=== PATIENT | male | born 1955 | race Caucasian/White ===

== ENCOUNTER 2019-09-12 06:40 | Day surgery (SDC) | payer OTHER ==
[2019-09-11 12:21] VITALS: BMI 29.0
[~2019-09-12 06:40] MED LIST: CHONDROITIN SU A/HYALUR SOD 1 KIT IO ONE; EPINEPHrine/PF 1 MG/1 ML (1:1,000) AMPULE SQ ONE; LIDOCAINE HCL 1% PRESERVATIVE FREE - 30ML VIAL IO ONE; TETRACAINE 0.5% OPHTH SOLN 2 ML BOTTLE TP ONE; TOBRAMYCIN/DEXAMETHASONE OPHTH. OINTMENT 1 TUBE OS ONE
[2019-09-12] MEDS ORDERED: ACETAMINOPHEN 325 MG TABLET (FP) PO PRN ×2 (06:45→10:52)
[2019-09-12] MEDS ORDERED: KETOROLAC TROMETHAMINE 0.5% EYE DROP 1 DROP DROPS ONE (07:37)
[2019-09-12] MEDS ORDERED: PHENYLEPHRINE 2.5% OPHTH SOLN 15 ML BOTTLE ONE (07:37)
[2019-09-12] MEDS ORDERED: TROPICAMIDE 1% OPHTH SOLN 15 ML BOTTLE ONE (07:37)
[2019-09-12] MEDS ORDERED: CIPROFLOXACIN HCL 0.3% OPHTH 2.5ML BOTTLE ONE (07:37)
[2019-09-12] MEDS: TROPICAMIDE 1% OPHTH SOLN 15 ML BOTTLE OP SCH ×3 (07:40→07:50)
[2019-09-12] MEDS: KETOROLAC TROMETHAMINE 0.5% EYE DROP 1 DROP DROPS OP SCH ×3 (07:40→07:50)
[2019-09-12] MEDS: CIPROFLOXACIN HCL 0.3% OPHTH 2.5ML BOTTLE OP SCH ×3 (07:40→07:50)
[2019-09-12] MEDS: PHENYLEPHRINE 2.5% OPHTH SOLN 15 ML BOTTLE OP SCH ×3 (07:40→07:50)
--- NOTE | 2019-09-12 08:38 | HP ---
- Patient Scheduled date of Surgery: 09/12/19 Scheduled Surgical Procedure: Phacoemulsification and cataract extraction with PCIOL Affected Eye: Left Chief Complaint (Indication for surgery): Decreased vision affecting ADLs - Ocular History Other Eye History: Other (SELENA, glaucoma suspect) Eye Medications: vigamox Previous Eye Surgery: s/p Lasik 2001 - Medical History Illnesses: Asthma, Hypertension, Hypercholesterolemia, Other (gerd. OA) Current Medications: Ambulatory Orders Atenolol [Tenormin] 100 mg PO HS 09/11/19 Atorvastatin Ca [Lipitor] 10 mg PO HS 09/11/19 B-Complex with Vitamin C [Super B Complex-Vitamin C] 1 each PO DAILY 09/11/19 Diclofenac Sodium [Voltaren-Xr] 100 mg PO DAILY 09/11/19 Allergies/Adverse Reactions: Allergies Allergy/AdvReac Type Severity Reaction Status Date / Time Penicillins Allergy Verified 09/12/19 07:52 Ocular Examination - Best Corrected Visual Acuity Distance: Right eye: 20/50 Distance: Left eye: 20/50 - External/Slit Lamp Examination Abnormalities: decreased TBUT - Intraocular Pressure Intraocular Pressure - Right eye: 14 Intraocular Pressure-Left eye: 14 - Lens Lens: 1-2+ NS 2-3+ PSC - Vitreous/Retina Vitreous/Retina: C:D 0.5 m/v/p wnl - Special Examination M - Right eye: +0.75 M - Left eye: +1.50 K - Right eye: 44.76/45.25 x 62 K - Left eye: 44.7/45.55 x87 AL - Right eye: 23.36 AL - Left eye: 23.24 IOL bag: +20.0 AUOOTO IOL sulcus: +19.0 MN60AC IOL AC: +16.5 MTA4UO - Impression Impression: Cataract Left Eye (PSC cataract OS) - Plan Plan: Phacoemulsification and cataract extraction - IOL Left eye Post-hospital care will be provided in office on: 09/13/19
--- NOTE | 2019-09-12 08:39 | HP ---
History & Physical Update - History History: No Change - Physical Physical: No Change - Assessment Assessment: No Change - Plan Plan: No Change (H and p from Dr. Vuong reviewed from 09/09/19 no changes)
[2019-09-12] MEDS ORDERED: TETRACAINE 0.5% OPHTH SOLN 2 ML BOTTLE TP ONE (08:45)
[2019-09-12] MEDS ORDERED: MIDAZOLAM HCL 2 MG/2 ML SINGLE DOSE VIAL ONE (08:51)
[2019-09-12] MEDS ORDERED: LIDOCAINE HCL 1% PRESERVATIVE FREE - 30ML VIAL IO ONE (08:57)
[2019-09-12] MEDS ORDERED: EPINEPHrine/PF 1 MG/1 ML (1:1,000) AMPULE ONE ×2 (08:58→09:05)
[2019-09-12] MEDS ORDERED: LIDOCAINE HCL/PF 1% SDV 5ML VIAL ONE (08:59)
[2019-09-12] MEDS ORDERED: TETRACAINE 0.5% OPHTH SOLN 2 ML BOTTLE ONE (08:59)
[2019-09-12] MEDS ORDERED: EPINEPHrine/PF 1 MG/1 ML (1:1,000) AMPULE SQ ONE ×2 (09:01→09:03)
[2019-09-12] MEDS ORDERED: EPINEPHrine 1:10,000 (P-F SYR) 1 MG/10 ML DISP.SYRIN SQ ONE (09:01)
[2019-09-12] MEDS ORDERED: CHONDROITIN SU A/HYALUR SOD 1 KIT IO ONE (09:02)
[2019-09-12] MEDS ORDERED: TOBRAMYCIN/DEXAMETHASONE OPHTH. OINTMENT 1 TUBE OS ONE (09:19)
--- NOTE | 2019-09-12 09:38 | OP ---
Ophthalmology Operative Note Pre-Operative Diagnosis: Cataract (PSC) Affected Eye: Left Findings: PSC cataract os Post-Operative Diagnosis: Same as Pre-op Solar [employer] Specialist: None Anesthesiologist: Maria T Garvin Anesthesia: Topical Specimens Removed: none Estimated blood loss: < 1cc Drains & Tubes with Location: none Operative Report Dictated: Yes
[2019-09-12 10:08] VITALS: BP 173/78; PULSE 68; TEMP 98.2
[2019-09-12] MEDS ORDERED: ONDANSETRON 4 MG/2 ML VIAL IVPUSH PRN (10:52)
[2019-09-12] MEDS ORDERED: LACTATED RINGERS SOLUTION 1,000 ML IV SCH (11:00)
[2019-09-12] MEDS ORDERED: CHONDROITIN SU A/HYALUR SOD 1 KIT ONE (11:03)
--- NOTE | 2019-09-12 12:14 | OP ---
DATE OF OPERATION: DATE OF DICTATION: 09/12/2019 PREOPERATIVE DIAGNOSIS: Posterior subcapsular cataract, left eye. POSTOPERATIVE DIAGNOSIS: Posterior subcapsular cataract, left eye. PROCEDURE: Phacoemulsification and cataract extraction with insertion of posterior chamber intraocular lens, left eye. SURGEON: Angelica Wilcox MD AMBULANCE OFFICER: None. ANESTHESIA: Topical. ANESTHESIOLOGIST: YUMIKO Carbone OPERATIVE PROCEDURE: The patient received Tetracaine eye drops and was gently sedated and prepped and draped in the usual sterile fashion so as to expose only the left eye. Ophthalmic Betadine was instilled into the inferior fornix and lashes were taped out of the surgical field. An eyelid speculum was placed into the left eye. Paracentesis was made in inferior temporal clear cornea at the limbus. Then 0.5 mL of nonpreserved lidocaine 1% was injected into the anterior chamber and then 1.5 mL of dilute epinephrine 1:10,000 was injected into the anterior chamber to improve pupillary dilation. Viscoelastic material was instilled into the anterior chamber via the paracentesis. A 2.4-mm keratome blade was then used to create the main incision in temporal clear cornea at the limbus. A continuous curvilinear capsulorrhexis was performed using a cystotome and Utrata forceps. Hydrodissection of the lens cortex was performed using BSS on a cannula until the nucleus was noted to be freely rotating. The phacoemulsification tip was then inserted via the main wound and used to scope 2 perpendicular grooves into the lens nucleus. The nucleus was cracked into 4 quadrants. Each quadrant was lifted out of the capsule into the iris plane and individually phacoemulsified. The remaining cortical material was then aspirated using the irrigation/aspiration port. The capsular bag was inflated using ProVisc and a preloaded AcrySof lens model AU00T0 power +20.5 diopters for a very slight myopia was injected into the capsular bag. It was centered using a Sinskey hook. The residual viscoelastic material was removed from the anterior chamber using irrigation and aspiration. The wound edges were hydrated using BSS. The wound was tested for leakage and was found to be watertight. Tobradex ointment was placed in the eye, and the speculum was removed from the eye, and the eyelid was closed. A sterile dressing and shield were placed over the eye. The patient was transferred to the recovery room in stable condition, told to follow up in 1 day. ANGELICA WILCOX M.D. [id number]
== END 2019-09-12 10:05 | disposition home or self-care (01) ==
LOC: JASU-SURG 06:40
PROVIDERS: ATTEND Ophthalmology
PROC: 08RK3JZ Replacement of Left Lens with Synthetic Substitute, Percutaneous Approach (ICD-10-PCS; principal; 2019-09-12 08:30)
DX: H26.8 Other specified cataract (principal)
CPT/HCPCS: 82962

== ENCOUNTER 2019-09-26 10:25 | Day surgery (SDC) | payer OTHER ==
[2019-09-25 15:45] VITALS: BMI 29.0
[~2019-09-26 10:25] MED LIST changes: -CHONDROITIN SU A/HYALUR SOD 1 KIT IO ONE; -EPINEPHrine/PF 1 MG/1 ML (1:1,000) AMPULE SQ ONE; -LIDOCAINE HCL 1% PRESERVATIVE FREE - 30ML VIAL IO ONE; -TETRACAINE 0.5% OPHTH SOLN 2 ML BOTTLE TP ONE; -TOBRAMYCIN/DEXAMETHASONE OPHTH. OINTMENT 1 TUBE OS ONE; +TOBRAMYCIN/DEXAMETHASONE OPHTH. OINTMENT 1 TUBE TP ONE
[2019-09-26] MEDS ORDERED: TROPICAMIDE 1% OPHTH SOLN 15 ML BOTTLE ONE (10:36)
[2019-09-26] MEDS: KETOROLAC TROMETHAMINE 0.5% EYE DROP 1 DROP DROPS OP SCH ×3 (10:58→11:24)
[2019-09-26] MEDS: CIPROFLOXACIN HCL 0.3% OPHTH 2.5ML BOTTLE OP SCH ×3 (10:58→11:23)
[2019-09-26] MEDS: TROPICAMIDE 1% OPHTH SOLN 15 ML BOTTLE OP SCH ×3 (11:00→11:24)
[2019-09-26] MEDS: PHENYLEPHRINE 2.5% OPHTH SOLN 15 ML BOTTLE OP SCH ×3 (11:01→11:24)
[2019-09-26] MEDS ORDERED: MIDAZOLAM HCL 2 MG/2 ML SINGLE DOSE VIAL ONE (12:08)
--- NOTE | 2019-09-26 12:09 | HP ---
- Patient Scheduled date of Surgery: 09/26/19 Scheduled Surgical Procedure: Phacoemulsification and cataract extraction with PCIOL Affected Eye: Right Chief Complaint (Indication for surgery): Decreased vision affecting ADLs - Ocular History Other Eye History: Other (SELENA and glaucoma suspect) Eye Medications: vigamox Previous Eye Surgery: s/p hyperopic lasik s/p ce/pciol OS - Medical History Illnesses: Asthma, Hypertension, Hypercholesterolemia, Other (Diabetes., Gerd, OA) Current Medications: Ambulatory Orders Atenolol [Tenormin] 100 mg PO HS 09/11/19 Atorvastatin Ca [Lipitor] 10 mg PO HS 09/11/19 B-Complex with Vitamin C [Super B Complex-Vitamin C] 1 each PO DAILY 09/11/19 Diclofenac Sodium [Voltaren-Xr] 100 mg PO DAILY 09/11/19 metformin Allergies/Adverse Reactions: Allergies Allergy/AdvReac Type Severity Reaction Status Date / Time Penicillins Allergy Verified 09/26/19 10:50 Ocular Examination - Best Corrected Visual Acuity Distance: Right eye: 20/50 Distance: Left eye: 20/20 - External/Slit Lamp Examination Abnormalities: decreased TBUT - Intraocular Pressure Intraocular Pressure - Right eye: 14 Intraocular Pressure-Left eye: 15 - Lens Lens: 1-2+ NS 2+ psc - Vitreous/Retina Vitreous/Retina: C:D 0.35 m/v/p wnl - Special Examination M - Right eye: +0.75 M - Left eye: -0.75-0.50 x 080 K - Right eye: 44.75/45.12 x 065 K - Left eye: 44.75/45.50 x 075 AL - Right eye: 23.06 AL - Left eye: 23.10 IOL bag: +20.0 AUOOTO IOL sulcus: +19.0 MN60AC IOL AC: +16.0 MTA4UO - Impression Impression: Cataract Right Eye (PSC) - Plan Plan: Phacoemulsification and cataract extraction - IOL Right eye Post-hospital care will be provided in office on: 09/27/19
--- NOTE | 2019-09-26 12:11 | HP ---
History & Physical Update - History History: Change (see notes) (h AND P reviewed from Dr. Vuong from 09/09/2019, patient now diabetic on metformin) - Physical Physical: No Change - Assessment Assessment: No Change - Plan Plan: No Change (H and P reviewed from 09/09/2019,)
[2019-09-26] MEDS ORDERED: TETRACAINE 0.5% OPHTH SOLN 2 ML BOTTLE TP ONE (12:16)
[2019-09-26] MEDS ORDERED: POVIDONE-IODINE 5% OPHTHALMIC PREP 30 ML SOLUTION OD ONE (12:18)
[2019-09-26] MEDS ORDERED: TOBRAMYCIN/DEXAMETHASONE OPHTH. OINTMENT 1 TUBE TP ONE ×2 (12:23→12:43)
[2019-09-26] MEDS ORDERED: BSS (NA/CA/MG/K) BALANCED SALT SOLUTION OPHTH SOLN 15 ML BOTTLE OD ONE (12:25)
[2019-09-26] MEDS ORDERED: CHONDROITIN SU A/HYALUR SOD 1 KIT IO ONE (12:25)
[2019-09-26] MEDS ORDERED: LIDOCAINE HCL 1% PRESERVATIVE FREE - 30ML VIAL IO ONE (12:25)
[2019-09-26] MEDS ORDERED: EPINEPHrine/PF 1 MG/1 ML (1:1,000) AMPULE SQ ONE ×2 (12:25→12:30)
--- NOTE | 2019-09-26 12:53 | OP ---
Ophthalmology Operative Note Pre-Operative Diagnosis: Cataract (PSC) Affected Eye: Right Operation: Phacoemulsification and cataract extraction with PCIOL Findings: PSC cataract right eye Post-Operative Diagnosis: Same as Pre-op Hydraulic Lift Operator: None Anesthesiologist: Howie Luciano Anesthesia: Topical Specimens Removed: none Estimated blood loss: < 1 cc Drains & Tubes with Location: None Operative Report Dictated: Yes
[2019-09-26 13:19] VITALS: TEMP 97.4
--- NOTE | 2019-09-26 13:45 | OP ---
DATE OF OPERATION: 09/26/2019 PREOPERATIVE DIAGNOSIS: Posterior subcapsular cataract, right eye. POSTOPERATIVE DIAGNOSIS: Posterior subcapsular cataract, right eye. PROCEDURE: Phacoemulsification and cataract extraction with insertion of posterior chamber intraocular lens, right eye. SURGEON: Angelica Wilcox MD PLASTIC PRESS OPERATOR: None. ANESTHESIA: Topical. ANESTHESIOLOGIST: CRISTHIAN Luciano OPERATIVE PROCEDURE: Following satisfactory intravenous sedation, the patient received Tetracaine eye drops and was gently prepped and draped in the usual sterile fashion so as to expose only the right eye. Ophthalmic Betadine was instilled into the inferior fornix. The lashes were taped out of the surgical field. An eyelid speculum was placed into the right eye. A paracentesis was made in superior temporal clear cornea at the limbus. Then 0.5 mL of nonpreserved lidocaine 1% was injected into the anterior chamber. Then, 1 mL of dilute epinephrine was instilled into the anterior chamber to improve pupillary dilation. Viscoelastic material was then instilled into the anterior chamber via the paracentesis. A 2.4-mm keratome was then used to create the main incision in temporal clear cornea at the limbus. A continuous curvilinear capsulorrhexis was performed using a cystotome and Utrata forceps. Hydrodissection of the lens cortex was performed using BSS on a cannula until the nucleus was noted to be freely rotating. The phacoemulsification tip was inserted via the main wound and used to scope 2 perpendicular grooves into the lens nucleus. The nucleus was cracked into 4 quadrants. Each quadrant was lifted out of the capsule into the iris plane and individually phacoemulsified. The remaining cortical material was then aspirated using the irrigation and aspiration port. The capsular bag was inflated using ProVisc, and a preloaded AcrySof lens model [id number] power +20.0 diopters was injected into the capsular bag and centered using a Sinskey hook. The residual viscoelastic material was removed from the anterior chamber using irrigation and aspiration. The wound edges were hydrated using BSS. The wound was tested for leakage. It was found to be watertight. Tobradex ointment was placed in the eye. The speculum was removed from the eye, and the eyelid was closed. A sterile dressing and shield were placed over the eye, and the patient was transferred to the recovery room in stable condition, told to follow up in 1 day. ANGELICA WILCOX M.D. [id number]
[2019-09-26 13:55] VITALS: BP 140/70; PULSE 68
[2019-09-26] MEDS ORDERED: CHONDROITIN SU A/HYALUR SOD 1 KIT ONE (15:32)
== END 2019-09-26 13:50 | disposition home or self-care (01) ==
LOC: JASU-SURG 10:25
PROVIDERS: ATTEND Ophthalmology
PROC: 08RJ3JZ Replacement of Right Lens with Synthetic Substitute, Percutaneous Approach (ICD-10-PCS; principal; 2019-09-26 12:00)
DX: H26.9 Unspecified cataract (principal); I10 Essential (primary) hypertension; E11.9 Type 2 diabetes mellitus without complications

== ENCOUNTER 2023-12-05 21:59 | Inpatient (IN) | payer OTHER ==
[2023-12-05 22:19] VITALS: BMI 26.6
[2023-12-05] MEDS ORDERED: diazePAM 5 MG TABLET ONE (23:03)
[2023-12-05] MEDS ORDERED: LIDOCAINE 4% PATCH TP ONE (23:03)
[2023-12-05] MEDS ORDERED: KETOROLAC TROMETHAMINE 30 MG/1 ML VIAL ONE (23:04)
[2023-12-05] MEDS: KETOROLAC TROMETHAMINE 30 MG/1 ML VIAL IM ONE (23:16)
[2023-12-05] MEDS: LIDOCAINE 5% TOPICAL PATCH TP ONE (23:17)
[2023-12-05] MEDS: diazePAM 5 MG TABLET PO ONE (23:17)
[2023-12-06] MEDS: LIDOCAINE PATCH REMOVAL MC SCH (00:06)
[2023-12-06 04:25] LABS: BASO % 0.4 % (0-2.0); EOS % 1.9 % (0-4.5); HEMATOCRIT 40.4 % (35.4-49); HEMOGLOBIN 13.8 GM/dL (11.7-16.9); LYMPH % 33.4 % (8-40); MCH 29.4 pg (25.7-33.7); MCHC 34.3 g/dl (32.0-35.9); MEAN CELL VOLUME 85.9 fl (80-96); MEAN PLT VOLUME 8.5 fl (7.5-11.1); MONO % 7.2 % (3.8-10.2); NEUT % 57.1 % (42.8-82.8); PLATELET COUNT 155 10^3/uL (134-434); RBC 4.71 M/mm3 (4.00-5.60); RDW 13.6 % (11.9-15.9); WHITE BLOOD COUNT 5.2 K/mm3 (4.0-10.0)
[2023-12-06 04:48] LABS: POTASSIUM 4.1 mmol/L (3.5-5.1)
[2023-12-06 04:49] LABS: CALCIUM 8.6 mg/dL (8.5-10.1)
[2023-12-06 04:50] LABS: BLOOD UREA NITROGEN 17.5 mg/dL (7-18)
[2023-12-06] MEDS ORDERED: metFORMIN HCL 500 MG TABLET (FP) ONE (06:00)
[2023-12-06] MEDS: metFORMIN HCL 500 MG TABLET (FP) PO SCH (06:00)
[2023-12-06] MEDS: KETOROLAC TROMETHAMINE 15 MG/ML VIAL IVPUSH PRN (06:05)
[2023-12-06] MEDS ORDERED: KETOROLAC TROMETHAMINE 15 MG/ML VIAL ONE (06:06)
[2023-12-06 06:38] LABS: PH,URINE 5.5 (5.0-8.0); URINE APPEARANCE CLEAR; URINE BILIRUBIN NEGATIVE (NEGATIVE); URINE COLOR YELLOW; URINE GLUCOSE (UA) NEGATIVE (NEGATIVE); URINE KETONE NEGATIVE (NEGATIVE); URINE LEUK ESTERASE NEGATIVE (NEGATIVE); URINE NITRITE NEGATIVE (NEGATIVE); URINE PROTEIN NEGATIVE (NEGATIVE); URINE UROBILINOGEN 0.2 mg/dL (0.2-1.0)
[2023-12-06] MEDS ORDERED: VALSARTAN 80 MG TABLET ONE (11:33)
[2023-12-06] MEDS ORDERED: diazePAM 5 MG TABLET ONE (11:36)
[2023-12-06] MEDS: diazePAM 5 MG TABLET PO PRN (11:40)
[2023-12-06] MEDS: VALSARTAN 160 MG TABLET PO SCH (11:40)
[2023-12-06] MEDS: ATORVASTATIN CA 10 MG TABLET (FP) PO SCH (21:34)
[2023-12-07] MEDS: TAMSULOSIN HCL 0.4 MG CAP PO SCH (10:58)
[2023-12-07] MEDS: DEXAMETHASONE SOD PHOSPHATE 4 MG/1 ML VIAL IVPUSH SCH (11:59)
[2023-12-07 14:15] VITALS: RESP 18
[2023-12-07] MEDS: INSULIN ASPART SLIDING SCALE (NOVOLOG) 1 VIAL SQ SCH (16:46)
[2023-12-07] MEDS: HEPARIN NA (PORCINE) 5,000 UNITS/ML 1ML VIAL SQ SCH (22:06)
[2023-12-07] MEDS: GABAPENTIN 100 MG CAPSULE PO SCH (22:08)
[2023-12-08] MEDS: SIMETHICONE 80 MG TAB.CHEW (FP) PO PRN (01:47)
[2023-12-08] MEDS: SODIUM CHLORIDE 500 ML IV STA (01:49)
[2023-12-08 14:47] VITALS: BP 138/78; PULSE 110; TEMP 98
== END 2023-12-08 14:45 | disposition home or self-care (01) | DRG 552 ==
LOC: JER 21:59 → JERBED 12-06 01:13 → J5S 12-06 12:38 → OBSVTOIN 12-07 13:47
PROVIDERS: ADMIT Internal Medicine; ATTEND Family Medicine
DX: M54.50 Low back pain, unspecified (principal); I10 Essential (primary) hypertension; E78.5 Hyperlipidemia, unspecified; E11.65 Type 2 diabetes mellitus with hyperglycemia
CPT/HCPCS: 0241U-QW; 36415; 72131-TC; 80048; 81003; 82962; 85025; 87086; 93005; 93010; 97116-GP; 97161-GP; 99285-25; G0378; J1644